=== PATIENT | male | born 1990 | race Caucasian/White ===

== ENCOUNTER 2016-03-23 19:38 | Emergency (ER) | payer SELFPAY ==
[2016-03-23] MEDS ORDERED: PREDNISONE 20 MG TABLET ONE (20:02)
[2016-03-23] MEDS ORDERED: CEPHALEXIN 500 MG CAPSULE ONE (20:02)
== END 2016-03-23 20:31 | disposition home or self-care (01) ==
LOC: ED 19:38
DX: J02.0 Streptococcal pharyngitis (principal); F17.210 Nicotine dependence, cigarettes, uncomplicated